=== PATIENT | female | born 1970 | race Caucasian/White ===

== ENCOUNTER 2022-12-11 15:46 | Outpatient (CLI) | payer OTHER | END 2022-12-11 15:47 | disposition home or self-care (01) | LOC: CSHMAMMO 15:46 | PROVIDERS: ATTEND Internal Medicine Hematology & Oncology | DX: Z12.31 Encounter for screening mammogram for malignant neoplasm of breast (principal); Z80.3 Family history of malignant neoplasm of breast; Z90.12 Acquired absence of left breast and nipple; Z98.82 Breast implant status | CPT/HCPCS: 77063; 77067 ==

== ENCOUNTER 2024-01-02 10:38 | Outpatient (CLI) | payer OTHER | END 2024-01-02 10:39 | disposition home or self-care (01) | LOC: CSHMAMMO 10:38 | PROVIDERS: ATTEND Internal Medicine Hematology & Oncology | DX: Z12.31 Encounter for screening mammogram for malignant neoplasm of breast (principal) | CPT/HCPCS: 77063; 77067 ==